=== PATIENT | male | born 1995 | race Caucasian/White ===

== ENCOUNTER 2017-12-15 16:07 | Emergency (ER) | END 2017-12-15 19:33 | disposition home or self-care (01) ==

== ENCOUNTER 2017-12-18 13:14 | Emergency (ER) | END 2017-12-18 13:54 | disposition home or self-care (01) ==

== ENCOUNTER 2017-12-22 10:39 | Emergency (ER) | END 2017-12-22 11:45 | disposition home or self-care (01) ==